=== PATIENT | female | born 1965 | race Hispanic/Latino ===

== ENCOUNTER 2018-03-17 19:15 | Emergency (ER) | payer OTHER ==
[2018-03-17 19:57] LABS: Urine Blood NEGATIVE (NEG); Urine Glucose NEGATIVE (NEG); Urine Protein NEGATIVE (NEG); Urine Specific Gravity 1.015 (1.005-1.030); Urine pH 5.5 (5.0-7.0)
[2018-03-17] MEDS ORDERED: NA CHLORIDE 0.9% 1,000 ML ONE (20:02)
--- NOTE | 2018-03-17 20:20 | RAD REPORT ---
EXAM DESCRIPTION: RAD - Chest Single View - 03/17/2018 8:06 pm CLINICAL HISTORY: Body aches, chills COMPARISON: None. TECHNIQUE: AP portable chest image was obtained 2002 hours . FINDINGS: Lungs are clear. Heart and vasculature are normal. No measurable pleural effusion and no p neumothorax. No gross bony abnormality seen. No acute aortic findings suspected. IMPRESSION: No acute cardiopulmonary process.
[2018-03-17 20:24] LABS: Protime INR 1.01
[2018-03-17 20:25] LABS: Absolute Lymphocytes (CBC) 1.1 K/uL (0.7-4.9); Absolute Monocytes 0.5 K/uL (0.1-1.3); Absolute Neutrophil 3.7 K/uL (1.8-8.0); Basophils % 0.7 % (0-1.3); Eosinophils % 0.6 % (0-4.4); Hematocrit 41.8 % (36.0-45.0); Lymphocytes % 21.3 % (15.3-44.8); MCH 30.4 pg (27.0-35.0); MCV 88.8 fL (80-100); MPV 7.7 fL (7.6-11.3); Monocytes % 9.9 % (3.3-12.3); RBC Red Blood Cell Count 4.71 M/uL (3.86-4.86)
[2018-03-17 20:28] LABS: ALT/SGPT 146 U/L (12-78); AST/SGOT 128 U/L (15-37); Alkaline Phosphatase 123 U/L (45-117); BUN Blood Urea Nitrogen 10 mg/dL (7-18); Bicarbonate 25 mmol/L (21-32); Bilirubin Direct 0.2 mg/dL (0-0.2); Bilirubin Total 0.5 mg/dL (0.2-1.0); Glucose Level 108 mg/dL (74-106); Magnesium 2.3 mg/dL (1.8-2.4); NT PRO-BNP 31 pg/mL (<125); Potassium 3.8 mmol/L (3.5-5.1); Protein, Total 8.3 g/dL (6.4-8.2); Sodium Level 137 mmol/L (136-145); Troponin (Emerg Dept Use Only) < 0.02 ng/mL (0.0-0.045)
--- NOTE | 2018-03-17 20:58 | EDPHYS ---
Physician Documentation [facility] Name: Farrah Menard Age: 52 yrs Sex: Female : 1965 Arrival Date: 03/17/2018 Time: 19:18 Bed 27 Private MD: ED Physician Blair Canales HPI: 03/17 19:36 This 52 yrs old Female presents to ER via Ambulatory with complaints of Body irma ache. 19:33 Onset: The symptoms/episode began/occurred 3 day(s) ago. Severity of symptoms: At their irma worst the symptoms were mild moderate in the emergency department the symptoms are unchanged. The patient has not experienced similar symptoms in the past. 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 - Social history:: Smoking status: Patient/guardian denies using tobacco. - Ebola Screening: : Patient denies travel to an Ebola-affected area in the 21 days before illness onset. - Family history:: not pertinent. ROS: 19:33 Constitutional: Negative for fever, chills, and weight loss, Eyes: Negative for injury, irma pain, redness, and discharge, ENT: Negative for injury, pain, and discharge, Neck: Negative for injury, pain, and swelling, Cardiovascular: Negative for chest pain, palpitations, and edema, Respiratory: Negative for shortness of breath, cough, wheezing, and pleuritic chest pain, Abdomen/GI: Negative for abdominal pain, nausea, vomiting, diarrhea, and constipation, Back: Negative for injury and pain, : Negative for injury, bleeding, discharge, and swelling, Skin: Negative for injury, rash, and discoloration, Neuro: Negative for headache, weakness, numbness, tingling, and seizure, Psych: Negative for depression, anxiety, suicide ideation, homicidal ideation, and hallucinations, Allergy/Immunology: Negative for hives, rash, and allergies, Endocrine: Negative for neck swelling, polydipsia, polyuria, polyphagia, and marked weight changes. 19:33 MS/extremity: Positive for pain, of the back, chest, abdomen, right arm, left arm, right leg and left leg. Exam: 19:33 Constitutional: This is a well developed, well nourished patient who is awake, alert, irma and in no acute distress. Head/Face: Normocephalic, atraumatic. Eyes: Pupils equal round and reactive to light, extra-ocular motions intact. Lids and lashes normal. Conjunctiva and sclera are non-icteric and not injected. Cornea within normal limits. Periorbital areas with no swelling, redness, or edema. ENT: Nares patent. No nasal discharge, no septal abnormalities noted. Tympanic membranes are normal and external auditory canals are clear. Oropharynx with no redness, swelling, or masses, exudates, or evidence of obstruction, uvula midline. Mucous membranes moist. Neck: Trachea midline, no thyromegaly or masses palpated, and no cervical lymphadenopathy. Supple, full range of motion without nuchal rigidity, or vertebral point tenderness. No Meningismus. Chest/axilla: Normal chest wall appearance and motion. Nontender with no deformity. No lesions are appreciated. Cardiovascular: Regular rate and rhythm with a normal S1 and S2. No gallops, murmurs, or rubs. Normal PMI, no JVD. No pulse deficits. Respiratory: Lungs have equal breath sounds bilaterally, clear to auscultation and percussion. No rales, rhonchi or wheezes noted. No increased work of breathing, no retractions or nasal flaring. Abdomen/GI: Soft, non-tender, with normal bowel sounds. No distension or tympany. No guarding or rebound. No evidence of tenderness throughout. Back: No spinal tenderness. No costovertebral tenderness. Full range of motion. Female : Normal external genitalia. Skin: Warm, dry with normal turgor. Normal color with no rashes, no lesions, and no evidence of cellulitis. MS/ Extremity: Pulses equal, no cyanosis. Neurovascular intact. Full, normal range of motion. Neuro: Awake and alert, GCS 15, oriented to person, place, time, and situation. Cranial nerves II-XII grossly intact. Motor strength 5/5 in all extremities. Sensory grossly intact. Cerebellar exam normal. Normal gait. Psych: Awake, alert, with orientation to person, place and time. Behavior, mood, and affect are within normal limits. 19:33 Musculoskeletal/extremity: DVT Exam: No signs of deep vein thrombosis. no pain, no swelling, no tenderness, negative Homans' sign noted on exam, no appreciated bluish discoloration, no erythema, no increased warmth. 21:29 Musculoskeletal/extremity: Extremities: grossly normal except: noted in the left irma femoral area: pain, swelling, tenderness, left inguinal region. Vital Signs: 19:22 BP 144 / 83; Pulse 96; Resp 18; Temp 98.5; Pulse Ox 97% on R/A; Weight 61.69 kg (R); aj1 Height 5 ft. 2 in. (157.48 cm) (R); Pain 4/10; 21:04 BP 125 / 68; Pulse 94; Pulse Ox 98% on R/A; rv 21:37 BP 132 / 70; Pulse 92; Resp 20; Pulse Ox 98% on R/A; rv 19:22 Body Mass Index 24.87 (61.69 kg, 157.48 cm) 1 MDM: 19:25 Patient medically screened. [facility] 19:36 Data reviewed: vital signs, nurses notes, lab test result(s), EKG, radiologic studies, [facility] plain films. 03/17 19:33 Order name: Basic Metabolic Panel [facility] 03/17 19:33 Order name: CBC with Diff; Complete Time: 20:57 [facility] 03/17 19:33 Order name: LFT's [facility] 03/17 19:33 Order name: Magnesium [facility] 03/17 19:33 Order name: NT PRO-BNP; Complete Time: 20:29 [facility] 03/17 19:33 Order name: PT-INR; Complete Time: 20:57 [facility] 03/17 19:33 Order name: Troponin (emerg Dept Use Only) [facility] 03/17 19:33 Order name: Urine Culture [facility] 03/17 19:33 Order name: Influenza Screen (a \T\ B); Complete Time: 20:27 [facility] 03/17 19:33 Order name: Basic Metabolic Panel; Complete Time: 20:29 [facility] 03/17 19:33 Order name: Liver (Hepatic) Function; Complete Time: 20:29 [facility] 03/17 19:33 Order name: Magnesium; Complete Time: 20:29 [facility] 03/17 19:33 Order name: Troponin (Emerg Dept Use Only); Complete Time: 20:29 [facility] 03/17 19:37 Order name: CK; Complete Time: 20:27 [facility] 03/17 19:33 Order name: XRAY Chest (1 view); Complete Time: 20:27 [facility] 03/17 19:33 Order name: Cardiac monitoring; Complete Time: 20:47 [facility] 03/17 19:33 Order name: EKG - Nurse/Tech; Complete Time: 20:47 [facility] 03/17 19:33 Order name: IV Saline Lock; Complete Time: 19:59 [facility] 03/17 19:33 Order name: Labs collected and sent; Complete Time: 19:59 [facility] 03/17 19:33 Order name: O2 Per Protocol; Complete Time: 20:09 [facility] 03/17 19:33 Order name: O2 Sat Monitoring; Complete Time: 20: [facility] 03/17 19:33 Order name: Urine Dipstick-Ancillary (obtain specimen); Complete Time: 20:46 [facility] 03/17 19:33 Order name: Urine Test (obtain specimen); Complete Time: 20:46 [facility] 03/17 19:40 Order name: Urine Dipstick--Ancillary (enter results); Complete Time: 20:27 [facility] 03/17 20:31 Order name: CT Stone Protocol; Complete Time: 21:16 [facility] 03/17 20:33 Order name: Hepatitis Panel irma Administered Medications: 20:00 Drug: NS 0.9% 1000 ml Route: IV; Rate: 1 bolus; Site: right antecubital; rv 21:36 Follow up: IV Status: Completed infusion rv 21:29 Drug: Rocephin - (cefTRIAXone) 1 grams Route: IVPB; Infused Over: 30 mins; Site: right rv antecubital; 21:36 Follow up: IV Status: Completed infusion rv Disposition: 03/17/18 20:57 Discharged to Home. Impression: Urinary tract infection, site not specified, Malaise and fatigue, Dermatitis, unspecified - eczema. - Condition is Stable. - Discharge Instructions: Dysuria, Eczema, Urinary Tract Infection, Adult, Weakness, Urinary Tract Infection, Adult, Mpjh-zs-Hjgi, Weakness, Kvgo-uj-Zgct, Lymphadenopathy. - Prescriptions for Motrin IB 200 mg Oral Tablet - take 2 tablet by ORAL route every 6 hours As needed as needed with food; 20 tablet. Bactroban 2 % Topical Ointment - Apply to affected area 1 application by TOPICAL route every 12 hours; 45 gram. Cipro 500 mg Oral Tablet - take 1 tablet by ORAL route every 12 hours for 7 days; 14 tablet. Bactrim DS 800- 160 mg Oral Tablet - take 1 tablet by ORAL route every 12 hours for 10 days; 20 tablet. - Medication Reconciliation Form, Thank You Letter, Antibiotic Education, Prescription Opioid Use form. - Follow up: Private Physician; When: 2 - 3 days; Reason: Recheck today's complaints, Continuance of care, Re-evaluation by your physician. - Problem is new. - Symptoms have improved. Signatures: Dispatcher [employer] EDMS Sara Mart RN RN ajBlair Early MD MD cha Vicente, Ronaldo, RN RN rv Corrections: (The following items were deleted from the chart) 21: 20:57 03/17/2018 20:57 Discharged to Home. Impression: Urinary tract infection, site irma not specified; Malaise and fatigue. Condition is Stable. Discharge Instructions: Dysuria, Urinary Tract Infection, Adult, Weakness, Urinary Tract Infection, Adult, Pemc-aw-Ecoc, Weakness, Lzje-ub-Pgtc. Prescriptions for Cipro 500 mg Oral Tablet - take 1 tablet by ORAL route every 12 hours for 7 days; 14 tablet, Motrin IB 200 mg Oral Tablet - take 2 tablet by ORAL route every 6 hours As needed as needed with food; 20 tablet. and Forms are Medication Reconciliation Form, Thank You Letter, Antibiotic Education, Prescription Opioid Use. Follow up: Private Physician; When: 2 - 3 days; Reason: Recheck today's complaints, Continuance of care, Re-evaluation by your physician. Problem is new. Symptoms have improved. [facility] 21:38 21:27 03/17/2018 20:57 Discharged to Home. Impression: Urinary tract infection, site rv not specified; Malaise and fatigue; Dermatitis, unspecified - eczema. Condition is Stable. Discharge Instructions: Dysuria, Urinary Tract Infection, Adult, Weakness, Urinary Tract Infection, Adult, Kgvn-be-Hudh, Weakness, Zcfr-aw-Uesw. Prescriptions for Motrin IB 200 mg Oral Tablet - take 2 tablet by ORAL route every 6 hours As needed as needed with food; 20 tablet, Cipro 250 mg Oral Tablet - take 1 tablet by ORAL route every 12 hours; 10 tablet. and Forms are Medication Reconciliation Form, Thank You Letter, Antibiotic Education, Prescription Opioid Use. Follow up: Private Physician; When: 2 - 3 days; Reason: Recheck today's complaints, Continuance of care, Re-evaluation by your physician. Problem is new. Symptoms have improved. irma
--- NOTE | 2018-03-17 20:58 | ER ---
Nurse's Notes [facility] Name: Farrah Menard Age: 52 yrs Sex: Female : 1965 Arrival Date: 03/17/2018 Time: 19:18 Bed 27 Private MD: Diagnosis: Urinary tract infection, site not specified;Malaise and fatigue;Dermatitis, unspecified-eczema Presentation: 03/17 19:19 Presenting complaint: Patient states: Last night she started having body aches, and aj1 chills but states that she did not have fever. Reports right flank pain. Denies N/V/D. Transition of care: patient was not received from another setting of care. Onset of symptoms was March 16, 2018. Risk Assessment: Do you want to hurt yourself or someone else? Patient reports no desire to harm self or others. Initial Sepsis Screen: Does the patient meet any 2 criteria? HR > 90 bpm. No. Patient's initial sepsis screen is negative. Does the patient have a suspected source of infection? Yes: Acute abdominal pain. Care prior to arrival: None. 19:19 Method Of Arrival: Ambulatory aj 19:19 Acuity: YANNI 3 aj1 Triage Assessment: 19:22 General: Appears in no apparent distress. comfortable, Behavior is calm, cooperative, aj1 appropriate for age. Pain: Pain currently is 4 out of 10 on a pain scale. Neuro: Level of Consciousness is awake, alert, obeys commands. Cardiovascular: Patient's skin is warm and dry. Respiratory: Airway is patent Respiratory effort is even, unlabored, Respiratory pattern is regular, symmetrical. 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 - Social history:: Smoking status: Patient/guardian denies using tobacco. - Ebola Screening: : Patient denies travel to an Ebola-affected area in the 21 days before illness onset. - Family history:: not pertinent. Screenin:12 Abuse screen: Denies threats or abuse. Denies injuries from another. Nutritional rv screening: No deficits noted. Tuberculosis screening: No symptoms or risk factors identified. Fall Risk None identified. Assessment: 21:11 General: Appears in no apparent distress. comfortable, Behavior is calm, cooperative. rv Pain: Complains of pain in generalized. Neuro: Level of Consciousness is awake, alert, obeys commands, Oriented to person, place, time, situation. Cardiovascular: Capillary refill < 3 seconds. Respiratory: Airway is patent. GI: No signs and/or symptoms were reported involving the gastrointestinal system. : No signs and/or symptoms were reported regarding the genitourinary system. EENT: No signs and/or symptoms were reported regarding the EENT system. Derm: Skin is intact. Vital Signs: 19:22 BP 144 / 83; Pulse 96; Resp 18; Temp 98.5; Pulse Ox 97% on R/A; Weight 61.69 kg (R); aj1 Height 5 ft. 2 in. (157.48 cm) (R); Pain 4/10; 21:04 BP 125 / 68; Pulse 94; Pulse Ox 98% on R/A; rv 21:37 BP 132 / 70; Pulse 92; Resp 20; Pulse Ox 98% on R/A; rv 19:22 Body Mass Index 24.87 (61.69 kg, 157.48 cm) aj1 ED Course: 19:18 Patient arrived in ED. es 19:21 Triage completed. aj1 19:22 Arm band placed on Patient placed in an exam room. aj1 19:25 Blair Canales MD is Attending Physician. irma 19:30 Urine collected: clean catch specimen, clear, hanh colored, Amount Voided: 60mL Flu jp3 and/or RSV swab sent to lab. 19:45 Initial lab(s) drawn, by ri, sent to lab. Inserted saline lock: 22 gauge in right jp3 antecubital area, using aseptic technique. Blood collected. 19:57 Urine Dipstick--Ancillary (enter results) Sent. jp3 19:57 CK Sent. jp3 19:57 Troponin (Emerg Dept Use Only) Sent. jp3 19:57 Magnesium Sent. jp3 19:58 Liver (Hepatic) Function Sent. jp3 19:58 Basic Metabolic Panel Sent. jp3 19:58 Influenza Screen (a \T\ B) Sent. jp3 19:58 LFT's Sent. jp3 19:58 Basic Metabolic Panel Sent. jp3 20:06 XRAY Chest (1 view) In Process Unspecified. EDMS 20:[address] via wheelchair. robbie 20:46 CT Stone Protocol In Process Unspecified. EDMS 21:12 Patient has correct armband on for positive identification. Placed in gown. Bed in low rv position. Call light in reach. Side rails up X 1. Adult w/ patient. playground monitor on. Pulse ox on. NIBP on. 21:38 No provider procedures requiring assistance completed. IV discontinued, bleeding rv controlled, No redness/swelling at site. Pressure dressing applied. Administered Medications: 20:00 Drug: NS 0.9% 1000 ml Route: IV; Rate: 1 bolus; Site: right antecubital; rv 21:36 Follow up: IV Status: Completed infusion rv 21:29 Drug: Rocephin - (cefTRIAXone) 1 grams Route: IVPB; Infused Over: 30 mins; Site: right rv antecubital; 21:36 Follow up: IV Status: Completed infusion rv Outcome: 20:57 Discharge ordered by . irma 21:38 Discharged to home ambulatory. rv 21:38 Condition: improved 21:38 Discharge instructions given to patient, Instructed on discharge instructions, follow up and referral plans. medication usage, Demonstrated understanding of instructions, follow-up care, medications, Prescriptions given X 4. 21:38 Patient left the ED. rv Signatures: Dispatcher [employer] Sara Dennis, RN RN aj1 Blair Canales MD MD cha Salyer, Bj Mittal Ronaldo, RN RN rv Enrique Hurd jp3
--- NOTE | 2018-03-17 21:02 | RAD REPORT ---
EXAM DESCRIPTION: CT - Stone Protocol - 03/17/2018 8:46 pm CLINICAL HISTORY: Abdominal pain, fever and chills COMPARISON: None. TECHNIQUE: Axial [address] imaging of the abdomen and pelvis was performed without IV contrast. No IV contrast was given because of allergy, abnormal renal function, patient refusal or physician re quest. Oral contrast was given. All CT scans are performed using dose optimization technique as appropriate and may include automated exposure control or mA/KV adjustment according to patient size. FINDINGS: No suspicious findings in the lung bases. The liver, spleen and pancreas show no suspicious findings on non-contrast imaging. Cholecystectomy c lips are present. No biliary tree dilatation. No obstructing or nonobstructing calculi. There is mild fullness or dilatation of each collecting sys tem. There is no obstructing or nonobstructing calculus present. No mass or focal abnormality seen. B aseline for the patient is unknown. No significant adrenal finding. Isodense renal masses and pyelon ephritis cannot be excluded in the absence of IV contrast. The urinary bladder is without significant finding. Uterus and ovaries show no significant findings. There is a 2 centimeter partially calcifie d anterior fundal fibroid. No dilated bowel loops or bowel wall thickening. No free air, free fluid or pneumatosis. There is no peritoneal or retroperitoneal inflammatory stranding. No bulky lymphadenopathy. Patient has a 2-3 cm fat only umbilical hernia. In the superior left inguinal canal there is a 16 millimeter lymph node. Several small adjacent subce ntimeter lymph nodes are present. There is congestion and edema in the adjacent fat. A 12 millimeter right internal iliac chain lymph node is present. 8-12 mm sized bilateral external iliac chain lymph nodes are seen. A 14 millimeter upper right inguinal lymph node is present. No omental thickening. No suspicious bony findings. IMPRESSION: Patient has mild dilatation of the bilateral renal collecting systems without obstructin g or nonobstructing calculi. No bladder mass or other etiology for this mild dilatation. This is pote ntially baseline for the patient. Bilateral inguinal and bilateral external iliac chain lymph nodes are present. A 16 millimeter upper left inguinal lymph node show surrounding congestion and edema which would suggest a localized groin or left leg infectious/inflammatory process. Follow-up imaging can be performed to monitor these lymp h nodes. Full assessment is limited is the absence of IV contrast.
[2018-03-17] MEDS ORDERED: CEFTRIAXONE/SWI 1gm 1 GM/10 ML SYR ONE (21:28)
[2018-03-21 03:03] LABS: HBsAG Nonreactive (Nonreactive); Hepatitis A IgM Antibody Nonreactive
== END 2018-03-17 21:38 | disposition home or self-care (01) ==
LOC: ER 19:15
DX: N39.0 Urinary tract infection, site not specified (principal); L30.9 Dermatitis, unspecified; R53.81 Other malaise; R53.83 Other fatigue
CPT/HCPCS: 36415; 71045; 74176; 76377; 80048; 80074; 80076; 81003; 82550; 83735; 83880; 84484; 85025; 85610; 87086; 87088; 87804; 96361; 96374; 99285; J0696; J7030

== ENCOUNTER 2018-11-07 18:24 | Observation (INO) | payer OTHER ==
[2018-11-07] MEDS ORDERED: NA CHLORIDE 0.9% 2,000 ML ONE (19:50)
[2018-11-07 20:17] LABS: Urine Blood 2+ (NEG); Urine Glucose TRACE (NEG); Urine Protein 2+ (NEG)
[2018-11-07 20:20] LABS: Absolute Lymphocytes (CBC) 0.2 K/uL (0.7-4.9); Absolute Monocytes 0.2 K/uL (0.1-1.3); Absolute Neutrophil 4.7 K/uL (1.8-8.0); Basophils % 0.6 % (0-1.3); Eosinophils % 1.3 % (0-4.4); Hematocrit 44.3 % (36.0-45.0); Lymphocytes % 3.4 % (15.3-44.8); Monocytes % 3.5 % (3.3-12.3); RBC Red Blood Cell Count 4.99 M/uL (3.86-4.86)
[2018-11-07] MEDS ORDERED: ONDANSETRON 4 MG/2 ML VIAL ONE (20:21)
[2018-11-07] MEDS ORDERED: ACETAMINOPHEN 500 MG TAB ONE (20:21)
[2018-11-07 20:27] LABS: Albumin 3.4 g/dL (3.4-5.0); Bilirubin Direct 1.2 mg/dL (0-0.2); Bilirubin Total 1.7 mg/dL (0.2-1.0); Magnesium 2.3 mg/dL (1.8-2.4); Potassium 3.8 mmol/L (3.5-5.1)
[2018-11-07 20:38] LABS: Urine Bacteria 20-50 /HPF (<20); Urine Culture Reflex Order REFLEXED
--- NOTE | 2018-11-07 20:53 | ER ---
Nurse's Notes [facility] Name: Farrah Menard Age: 53 yrs Sex: Female : 1965 Arrival Date: 11/07/2018 Time: 18:27 Bed 19 Private MD: Diagnosis: Urinary tract infection, site not specified;Other sepsis Presentation: 11/07 18:36 Presenting complaint: Patient states: "yesterday I started with a UTI this morning I aj1 went to Urgent Care and they gave me penicillin and then around 4:30 I started feeling cold, achy, shivering." Patient reports that she was was discharged from Urgent Care with a Rx for penicillin. Transition of care: patient was not received from another setting of care. Onset of symptoms was November 07, 2018 at 16:30. Risk Assessment: Do you want to hurt yourself or someone else? Patient reports no desire to harm self or others. Initial Sepsis Screen: Does the patient meet any 2 criteria? HR > 90 bpm. No. Patient's initial sepsis screen is negative. Does the patient have a suspected source of infection? Yes: Dysuria/Frequency/Urgency/UTI. Care prior to arrival: None. 18:36 Method Of Arrival: Ambulatory aj1 18:36 Acuity: YANNI 3 aj1 Triage Assessment: 18:38 General: Appears in no apparent distress. uncomfortable, Behavior is calm, cooperative, aj1 appropriate for age. Pain: Complains of pain in generalized body aches. Neuro: Level of Consciousness is awake, alert, obeys commands. Cardiovascular: Patient's skin is warm and dry. Respiratory: Airway is patent Respiratory effort is even, unlabored, Respiratory pattern is regular, symmetrical. GI: Reports nausea, vomiting. : Reports burning with urination. HOSTESS: 18:38 LMP N/A - Post-menopause aj1 Historical: - Allergies: 18:38 No Known Allergies; aj1 - Home Meds: 18:38 None [Active]; aj1 - PMHx: 18:38 None; aj1 - PSHx: 18:38 Tubal ligation; Tonsillectomy; aj1 - Immunization history:: Flu vaccine is up to date. - Social history:: Smoking status: Patient/guardian denies using tobacco. - Ebola Screening: : Patient denies travel to an Ebola-affected area in the 21 days before illness onset. Screenin:30 Abuse screen: Denies threats or abuse. Nutritional screening: No deficits noted. ea Tuberculosis screening: No symptoms or risk factors identified. Fall Risk None identified. Assessment: 19:20 General: Appears uncomfortable, Behavior is calm, cooperative, appropriate for age. ea Pain: Complains of pain in all over. Neuro: Level of Consciousness is awake, alert, obeys commands, Oriented to person, place, time, situation. Cardiovascular: Patient's skin is warm and dry. Respiratory: Airway is patent Respiratory effort is even, unlabored, Respiratory pattern is regular, symmetrical. GI: Abdomen is non-distended. : Reports burning with urination. Derm: Skin is pink, warm \\T\\ dry. Musculoskeletal: Circulation, motion, and sensation intact. 21:15 Reassessment: Patient and/or family updated on plan of care and expected duration. Pain ea level reassessed. Patient is alert, oriented x 3, equal unlabored respirations, skin warm/dry/pink. 21:42 Reassessment: Patient and/or family updated on plan of care and expected duration. Pain ea level reassessed. Patient is alert, oriented x 3, equal unlabored respirations, skin warm/dry/pink. Patient states feeling better. 22:00 Reassessment: Patient and/or family updated on plan of care and expected duration. Pain ea level reassessed. Patient is alert, oriented x 3, equal unlabored respirations, skin warm/dry/pink. Reassessment: Patient and/or family updated on plan of care and expected duration. Pain level reassessed. Patient is alert, oriented x 3, equal unlabored respirations, skin warm/dry/pink. Awaiting on room assignment. 23:00 Reassessment: Patient and/or family updated on plan of care and expected duration. Pain ea level reassessed. Patient is alert, oriented x 3, equal unlabored respirations, skin warm/dry/pink. 11/08 00:42 Reassessment: Patient and/or family updated on plan of care and expected duration. Pain ea level reassessed. Patient is alert, oriented x 3, equal unlabored respirations, skin warm/dry/pink. Report called to Juan C GLOVER. 01:00 Reassessment: Patient and/or family updated on plan of care and expected duration. Pain ea level reassessed. Patient is alert, oriented x 3, equal unlabored respirations, skin warm/dry/pink. Pt admitted to room 431, left ED via wheelchair per tech, pt tolerating well. No s/s of pain or discomfort noted at this time. Vital Signs: 11/07 18:38 BP 114 / 85; Pulse 127; Resp 18; Temp 101.3; Pulse Ox 97% on R/A; Weight 61.69 kg (R); aj1 Height 5 ft. 3 in. (160.02 cm) (R); Pain 8/10; 19:18 BP 106 / 70; Pulse 109; Resp 18; Pulse Ox 98% on R/A; ea 20:15 BP 117 / 65; Pulse 109; Resp 19; Pulse Ox 97% ; ea 21:24 BP 128 / 72; Pulse 103; Resp 18; Pulse Ox 97% on R/A; ea 21:29 Temp 98.3; ea 22:15 BP 106 / 63; Pulse 94; Resp 18; Pulse Ox 96% on R/A; ea 23:45 BP 111 / 63; Pulse 99; Resp 18; Temp 98.6; Pulse Ox 96% on R/A; ea 11/08 00:45 BP 110 / 64; Pulse 90; Resp 18; Temp 98.4; Pulse Ox 98% on R/A; ea 11/07 18:38 Body Mass Index 24.09 (61.69 kg, 160.02 cm) aj1 ED Course: 11/07 18:27 Patient arrived in ED. as 18:38 Triage completed. aj1 18:38 Arm band placed on Patient placed in waiting room, Patient notified of wait time. aj1 19:05 Blair Lewis PA is PHCP. cp 19:05 Bassem Anderson MD is Attending Physician. cp 19:23 Radha Mckenzie, ADALBERTO is Primary Nurse. ea 19:25 Patient has correct armband on for positive identification. Placed in gown. Bed in low ea position. Call light in reach. 19:25 Inserted saline lock: 20 gauge in right antecubital area, using aseptic technique. ea 20:[address] 2 20:52 Bassem Conklin MD is Hospitalizing Provider. cp 21:05 CT Abd/Pelvis - W/Contrast: no oral contrast In Process Unspecified. EDMS 21:22 US Abdomen Limited: RUQ/epigastric area In Process Unspecified. EDMS 23:44 No provider procedures requiring assistance completed. Patient admitted, IV remains in ea place. Administered Medications: 19:50 Drug: NS 0.9% (30 ml/kg) 30 ml/kg Route: IV; Rate: bolus; Site: right antecubital; ea 21:00 Follow up: Response: No adverse reaction; IV Status: Completed infusion; IV Intake: ea 1850ml 20:15 Drug: Acetaminophen 1000 mg Route: PO; ea 21:29 Follow up: Temp 98.3; Response: No adverse reaction ea 20:15 Drug: Zofran 4 mg Route: IVP; Site: right antecubital; ea 20:30 Follow up: Response: No adverse reaction; Marked relief of symptoms ea 21:17 Drug: Rocephin - (cefTRIAXone) 1 grams Route: IVPB; Infused Over: 30 mins; Site: right ea antecubital; 21:59 Follow up: Response: No adverse reaction; IV Status: Completed infusion ea 22:47 Drug: NS 0.9% 1000 ml Route: IV; Rate: 100 ml/hr; Site: right antecubital; ea 11/08 00:35 Follow up: Response: No adverse reaction; IV Status: Completed infusion ea Intake: 11/07 21:00 IV: 1850ml; Total: 1850ml. ea Outcome: 20:53 Decision to Hospitalize by Provider. cp 21:10 Instructed on the need for admit. ea 11/08 00:51 Discharged to home ambulatory, with family. ea Condition: stable 01:04 Patient left the ED. ea Signatures: Dispatcher [employer] EDMS Sara Mart, RN RN [facility] [place] Corey, PA PA cp McGuire, Victoria Radha Juarez RN RN ea Corrections: (The following items were deleted from the chart) 11/07 18:40 18:36 Acuity: YANNI 4 aj1 aj1 23:47 23:45 BP 111 / 63; Pulse 99bpm; Resp 18bpm; Pulse Ox 96% RA; ea ea
--- NOTE | 2018-11-07 20:53 | EDPHYS ---
Physician Documentation [facility] Name: Farrah Menard Age: 53 yrs Sex: Female : 1965 Arrival Date: 11/07/2018 Time: 18:27 Bed 19 Private MD: ED Physician Bassem Anderson HPI: 11/07 19:20 This 53 yrs old Female presents to ER via Ambulatory with complaints of cp Urinary Problem, Pain All Over, Vomiting. 19:20 The patient presents with urinary symptoms. Onset: The symptoms/episode began/occurred cp yesterday, and became worse today. Associated signs and symptoms: Pertinent positives: fever, nausea, vomiting, chills, abdominal pain, back pain, Pertinent negatives: constipation, diarrhea. Severity of symptoms: in the emergency department the symptoms are actually worse. The patient has been recently seen at an urgent care, today, for similar complaints, was given a prescription for antibiotics. 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 - Social history:: Smoking status: Patient/guardian denies using tobacco. - Ebola Screening: : Patient denies travel to an Ebola-affected area in the 21 days before illness onset. ROS: 19:30 Constitutional: Positive for body aches, chills, fever, Negative for poor PO intake. cp 19:30 Eyes: Negative for injury, pain, redness, and discharge. cp 19:30 ENT: Negative for drainage from ear(s), ear pain, sore throat, difficulty swallowing, difficulty handling secretions. 19:30 Neck: Negative for pain with movement, pain at rest, stiffness, tenderness. 19:30 Cardiovascular: Negative for chest pain, edema, palpitations. 19:30 Respiratory: Negative for cough, shortness of breath, wheezing. 19:30 Abdomen/GI: Positive for abdominal pain, nausea, vomiting, Negative for diarrhea, constipation, black/tarry stool, rectal bleeding. 19:30 Back: Positive for flank pain, bilaterally. 19:30 : Positive for urinary symptoms, Negative for vaginal bleeding, vaginal discharge. 19:30 Skin: Negative for cellulitis, rash. 19:30 Neuro: Negative for altered mental status, dizziness, headache, weakness. 19:30 All other systems are negative. Exam: 19:38 Constitutional: The patient appears in no acute distress, alert, awake, cp non-diaphoretic, non-toxic, well developed, well nourished, febrile, uncomfortable. 19:38 Head/Face: Normocephalic, atraumatic. cp 19:38 Eyes: Periorbital structures: appear normal, Pupils: equal, round, and reactive to light and accomodation, Extraocular movements: intact throughout, Conjunctiva: normal, no exudate, no injection, Sclera: no appreciated abnormality, Lids and lashes: appear normal, bilaterally. 19:38 ENT: External ear(s): are unremarkable, Ear canal(s): are normal, clear, TM's: bulging, is not appreciated, bilaterally, dullness, bilaterally, erythema, is not appreciated, bilaterally, Nose: is normal, Mouth: Lips: moist, Oral mucosa: pink and intact, moist, Posterior pharynx: is normal, airway is patent, no erythema, no exudate, Voice: is normal. 19:38 Neck: ROM/movement: is normal, is supple, without pain, no range of motions limitations, no meningismus, no nuchal rigidity, Lymph nodes: no appreciated lymphadenopathy. 19:38 Chest/axilla: Inspection: normal, Palpation: is normal, no crepitus, no tenderness. 19:38 Cardiovascular: Rate: tachycardic, Rhythm: regular, Edema: is not appreciated, JVD: is not appreciated. 19:38 Respiratory: the patient does not display signs of respiratory distress, Respirations: normal, no use of accessory muscles, no retractions, no splinting, no tachypnea, labored breathing, is not present, Breath sounds: are clear throughout, no decreased breath sounds, no stridor, no wheezing. 19:38 Abdomen/GI: Inspection: abdomen appears normal, Bowel sounds: active, all quadrants, Palpation: soft, in all quadrants, mild abdominal tenderness, in the right lower quadrant and left lower quadrant, rebound tenderness, is not appreciated, voluntary guarding, is not appreciated, involuntary guarding, is not appreciated. 19:38 Back: pain, that is mild, of the low back area and mid back area, ROM is normal. 19:38 Skin: cellulitis, is not appreciated, no rash present. 19:38 Neuro: Orientation: to person, place \T\ time. Mentation: is normal, Cerebellar function: is grossly normal, Motor: moves all fours, strength is normal, Sensation: is normal. Vital Signs: 18:38 BP 114 / 85; Pulse 127; Resp 18; Temp 101.3; Pulse Ox 97% on R/A; Weight 61.69 kg (R); aj1 Height 5 ft. 3 in. (160.02 cm) (R); Pain 8/10; 19:18 BP 106 / 70; Pulse 109; Resp 18; Pulse Ox 98% on R/A; ea 20:15 BP 117 / 65; Pulse 109; Resp 19; Pulse Ox 97% ; ea 21:24 BP 128 / 72; Pulse 103; Resp 18; Pulse Ox 97% on R/A; ea 21:29 Temp 98.3; ea 22:15 BP 106 / 63; Pulse 94; Resp 18; Pulse Ox 96% on R/A; ea 23:45 BP 111 / 63; Pulse 99; Resp 18; Temp 98.6; Pulse Ox 96% on R/A; ea 11/08 00:45 BP 110 / 64; Pulse 90; Resp 18; Temp 98.4; Pulse Ox 98% on R/A; ea 11/07 18:38 Body Mass Index 24.09 (61.69 kg, 160.02 cm) aj1 MDM: 11/07 19:05 Patient medically screened. cp 19:35 Differential diagnosis: pelvic inflammatory disease, urinary tract infection, sepsis, cp pyelonephritis, appendicitis. 20:55 Data reviewed: vital signs, nurses notes, lab test result(s), I have discussed the cp patient's presentation/case with the attending Emergency Department Physician; and as a result, I will admit patient. 20:55 Response to treatment: the patient's symptoms have markedly improved after treatment. Physician consultation: Bassem Conklin MD was called at 20:45, was contacted at 20:45, regarding admission, to the telemetry unit. patient's condition. 11/07 19:16 Order name: Basic Metabolic Panel 11/07 19:16 Order name: CBC with Diff 11/07 19:16 Order name: Creatinine for Radiology 11/07 19:16 Order name: Hepatic Function 11/07 19:16 Order name: Lipase 11/07 19:16 Order name: Procalcitonin; Complete Time: 20:36 11/07 20:36 Interpretation: Abnormal: Procalcitonin 2.71. cp 11/07 19:16 Order name: Lactate; Complete Time: 20:35 11/07 19:16 Order name: Blood Culture Adult (2) 11/07 19:16 Order name: Magnesium; Complete Time: 20:35 11/07 19:16 Order name: Urine Microscopic Only; Complete Time: 20:44 11/07 19:16 Order name: Influenza Screen (a \T\ B); Complete Time: 20:35 11/07 19:17 Order name: Basic Metabolic Panel; Complete Time: 20:35 EDOH 11/07 20:36 Interpretation: Normal except: CL 109; GLUC 161; GFR 58. 11/07 19:17 Order name: CBC with Automated Diff; Complete Time: 22:34 EDOH 11/07 20:36 Interpretation: Normal except: RBC 4.99; MAGDY% 91.2; LYM% 3.4; LYMA 0.2. 11/07 19:17 Order name: Creatinine (Radiology Only); Complete Time: 20:35 EDMS 11/07 19:17 Order name: Liver (Hepatic) Function; Complete Time: 20:35 EDOH 11/07 19:17 Order name: Lipase; Complete Time: 20:35 [facility] 11/07 20:07 Order name: Urine Dipstick--Ancillary (enter results) [facility] 11/07 20:07 Order name: Urine --Ancillary (enter results) [facility] 11/07 20:40 Order name: CT Abd/Pelvis - W/Contrast: no oral contrast 11/07 20:40 Order name: Urine Culture [facility] 11/07 20:45 Order name: US Abdomen Limited: RUQ/epigastric area; Complete Time: 08:38 11/07 21:11 Order name: CBC Smear Scan; Complete Time: 22:34 EDMS 11/08 00:17 Order name: CBC with Automated Diff; Complete Time: 08:38 EDOH 11/08 00:17 Order name: Comprehensive Metabolic Panel; Complete Time: 08:38 [facility] 11/08 00:17 Order name: Lipid Profile; Complete Time: 08:38 [facility] 11/08 00:17 Order name: Protime (+INR); Complete Time: 08:38 [facility] 11/08 00:17 Order name: PTT, Activated Partial Thromb; Complete Time: 08:38 [facility] 11/08 00:17 Order name: Troponin I; Complete Time: 08:38 [facility] 11/08 00:17 Order name: Troponin I; Complete Time: 08:38 [facility] 11/08 00:17 Order name: Hepatitis Panel,Acute EDOH 11/07 19:16 Order name: IV Saline Lock; Complete Time: 22:13 cp 11/07 19:16 Order name: Labs collected and sent; Complete Time: 22:13 cp 11/07 19:16 Order name: Urine Dipstick-Ancillary (obtain specimen); Complete Time: 22:18 cp 11/07 19:16 Order name: Urine Test (obtain specimen); Complete Time: 22:18 cp 11/07 19:16 Order name: EKG; Complete Time: 19:18 cp 11/07 19:16 Order name: EKG - Nurse/Tech; Complete Time: 22:13 cp 11/07 23:55 Order name: CONS Pharmacy Consult EDOH 11/07 23:55 Order name: NPO [facility] Administered Medications: 19:50 Drug: NS 0.9% (30 ml/kg) 30 ml/kg Route: IV; Rate: bolus; Site: right antecubital; ea 21:00 Follow up: Response: No adverse reaction; IV Status: Completed infusion; IV Intake: ea 1850ml 20:15 Drug: Acetaminophen 1000 mg Route: PO; ea 21:29 Follow up: Temp 98.3; Response: No adverse reaction ea 20:15 Drug: Zofran 4 mg Route: IVP; Site: right antecubital; ea 20:30 Follow up: Response: No adverse reaction; Marked relief of symptoms ea 21:17 Drug: Rocephin - (cefTRIAXone) 1 grams Route: IVPB; Infused Over: 30 mins; Site: right ea antecubital; 21:59 Follow up: Response: No adverse reaction; IV Status: Completed infusion ea 22:47 Drug: NS 0.9% 1000 ml Route: IV; Rate: 100 ml/hr; Site: right antecubital; ea 11/08 00:35 Follow up: Response: No adverse reaction; IV Status: Completed infusion ea Disposition: 11/07/18 20:53 Hospitalization ordered by Bassem Conklin for Inpatient Admission. Preliminary diagnosis are Urinary tract infection, site not specified, Other sepsis. - Bed requested for Telemetry/MedSurg (Inpatient). - Status is Inpatient Admission. ea - Condition is Stable. - Problem is new. - Symptoms have improved. UTI on Admission? Yes Addendum: 11/14/2018 19:53 Co-signature as Attending Physician, Bassem Anderson MD. m a2 Signatures: Dispatcher [employer] EDSara Boyd RN RN aj1 Blair Lewis PA PA cp Garcia, Cindy, RN RN cg Antunez, Elena, RN RN ea Alzahri, Mohammad, MD MD ma2 Corrections: (The following items were deleted from the chart) 11/07 20:36 20:36 Normal except: RBC 4.99; MAGDY% 91.2; LYM% 3.4. cp 11/08 00:25 11/07 20:53 Hospitalization Ordered by Bassem Conklin MD for Inpatient Admission. cg Preliminary diagnosis is Urinary tract infection, site not specified; Other sepsis. Bed requested for Telemetry/MedSurg (Inpatient). Status is Inpatient Admission. Condition is Stable. Problem is new. Symptoms have improved. UTI on Admission? Yes. 11/08 01:04 00:25 11/07/2018 20:53 Hospitalization Ordered by Bassem Conklin MD for Inpatient ea Admission. Preliminary diagnosis is Urinary tract infection, site not specified; Other sepsis. Bed requested for Telemetry/MedSurg (Inpatient). Status is Inpatient Admission. Condition is Stable. Problem is new. Symptoms have improved. UTI on Admission? Yes. cg
[2018-11-07 21:11] LABS: Blood Morphology Comment NOT SEEN (NOT SEEN); Platelet Estimate ADEQ; Urine White Blood Cell Casts OK
[2018-11-07] MEDS ORDERED: CEFTRIAXONE/SWI 1gm 1 GM/10 ML SYR ONE (21:34)
[2018-11-07] MEDS ORDERED: NA CHLORIDE 0.9% 1,000 ML ONE (22:58)
[2018-11-07] MEDS ORDERED: ONDANSETRON 4 MG/2 ML VIAL IV PRN (23:51)
[2018-11-07] MEDS ORDERED: MORPHINE 4 MG/ML SYR IV PRN (23:51)
[2018-11-08 06:20] LABS: Absolute Lymphocytes (CBC) 0.3 K/uL (0.7-4.9); Absolute Monocytes 0.1 K/uL (0.1-1.3); Absolute Neutrophil 2.5 K/uL (1.8-8.0); Basophils % 0.5 % (0-1.3); Eosinophils % 4.3 % (0-4.4); Lymphocytes % 10.1 % (15.3-44.8); MPV 8.4 fL (7.6-11.3); Monocytes % 2.1 % (3.3-12.3); RBC Red Blood Cell Count 4.51 M/uL (3.86-4.86)
[2018-11-08 06:24] LABS: Protime INR 0.97
[2018-11-08 06:33] LABS: Albumin 2.6 g/dL (3.4-5.0); Bilirubin Total 0.8 mg/dL (0.2-1.0); Potassium 3.5 mmol/L (3.5-5.1); Protein, Total 5.7 g/dL (6.4-8.2)
[2018-11-08] MEDS: NA CHLORIDE 0.9% 1,000 ML IV SCH ×4 (08:06→23:48)
--- NOTE | 2018-11-08 08:19 | RAD REPORT ---
EXAM DESCRIPTION: US - Abdomen Exam Limited - 11/07/2018 9:22 pm CLINICAL HISTORY: ABD PAIN COMPARISON: Abdomen Exam Complete dated 11/05/2015 FINDINGS: Cholecystectomy. The common bile duct is normal measuring 4 mm. The liver demonstrates no findings of intrahepatic biliary dilatation. Mild fatty liver. IMPRESSION: Mild fatty liver.
--- NOTE | 2018-11-08 10:46 | RAD REPORT ---
EXAM DESCRIPTION: Abdomen Pelvis W Contrast EXAM DESCRIPTION: Abdomen Pelvis W Contrast CLINICAL HISTORY: 53 years Female, ABD PAIN COMPARISON: Noncontrast CT scan the abdomen and pelvis dated 03/17/2018. TECHNIQUE: 5 mm axial images of the abdomen and pelvis were obtained with intravenous contrast. 3 mm coronal and sagittal reforma tted images were obtained.. This exam was performed according to our departmental dose-optimization program, which includes autom ated exposure control, adjustment of the mA and/or kV according to patient size and/or use of iterati ve reconstruction technique. INTRAVENOUS CONTRAST: Not documented. Please refer to medical record FINDINGS: Lung bases: There is mild dependent bibasilar atelectasis.. Liver: There is diffuse fatty liver infiltration.. Spleen: Normal. Pancreas: Normal. Gallbladder: Surgically absent. Right adrenal gland: Normal. Left adrenal gland: Normal. Right kidney: Normal. Left kidney: Normal. Retroperitoneal structures: Normal. Bowel survey: There are multiple small bowel loops in the left abdominal flank with mural thickening and nondistended distal small bowel loops in the right lower quadrant with short air-fluid levels. Fi ndings suggestive of enteritis. There is mild sigmoid diverticulosis.. Urinary bladder: Normal. Uterus and adnexa: There is a small partially calcified exophytic uterine fibroid extending anteriorl y from the uterine body just left of midline. This measures 1.7 x 1.9 cm.. Peritoneal cavity: Normal. Mesentery structures: Normal. Abdominal wall: No hernia. There has been interval resolution of enlarged left inguinal lymph node. Bony structures: No suspicious lesions. IMPRESSION: 1. Findings suspicious for enteritis. 2. Small partially calcified uterine fibroid. 3. Diffuse fatty liver infiltration. Electronically signed by: Nathanael Centeno MD 11/07/2018 9:17 PM CDT Due to temporary technical issues with the PACS/Fluency reporting system, reports are being signed by the in house radiologist as a courtesy to ensure prompt reporting. The interpreting radiologist is f ully responsible for the content of the report.
--- NOTE | 2018-11-08 10:56 | P.HP ---
Certification for Inpatient Patient admitted to: Observation With expected LOS: <2 Midnights Practitioner: I am a practitioner with admitting privileges, knowledge of patient current condition, hospital course, and medical plan of care. Services: Services provided to patient in accordance with Admission requirements found in Title 42 Section 412.3 of the Code of Federal Regulations Patient History Date of Service: 11/08/18 Reason for admission: Pain all over; UTI with bacteremia History of Present Illness: Patient is a 53-year-old female who came to the hospital with complaints of hurting all over. She said she just had generalized body aches. She also felt like all her joints were hurting. She came into the emergency room for further evaluation. In the ER she spiked a temp of a 101. She did not have a leukocytosis nor any other lab abnormalities except for a slightly elevated heart rate. It was felt she may have sepsis so she was admitted to the hospital for further evaluation. She had a CT scan which did not reveal any abnormal findings. She also had additional lab testing performed which revealed urinary tract infection. She states she was given Tylenol and after were she felt much better. She is clinically doing well this morning. She has no complaints. Her liver numbers were elevated but she has been told she has a fatty liver. All check her hepatitis panel and repeat her liver function testing. If these are improved and she clinically appears to be doing well we will let her go home with oral antibiotics for urinary tract infection. Will continue to monitor her throughout the morning, and after lunch she should be able to go home if her labs and her clinical condition remained stable. Allergies sulfamethoxazole [From Bactrim] Allergy (Severe, Verified 11/08/18 01:13) leg cramps trimethoprim [From Bactrim] Allergy (Severe, Verified 11/08/18 01:13) leg cramps Home Medications: NK [No Home Meds] 11/08/18 - Past Medical/Surgical History Has patient received pneumonia vaccine in the past: No Diabetic: No Past Medical History: Patient denies medical history -: Tubal Ligation -: Tonsilectomy - Family History Father Family History: Reviewed- Non-Contributory - Social History Smoking Status: Never smoker Alcohol use: Yes CD- Drugs: No Caffeine use: Yes Place of Residence: Home Review of Systems 10-point ROS is otherwise unremarkable Physical Examination - Vital Signs Temperature: 98.5 F Blood Pressure: 96/51 Pulse: 99 Respirations: 20 Pulse Ox (%): 96 - Physical Exam General: Alert, In no apparent distress, Oriented x3 HEENT: Atraumatic, PERRLA, Mucous membr. moist/pink, EOMI, Sclerae nonicteric Neck: Supple, 2+ carotid pulse no bruit, No LAD, Without JVD or thyroid abnormality Respiratory: Clear to auscultation bilaterally, Normal air movement Cardiovascular: Regular rate/rhythm, Normal S1 S2 Gastrointestinal: Normal bowel sounds, Soft and benign, Non-distended, No tenderness Musculoskeletal: No clubbing, No swelling, No tenderness Integumentary: No rashes Neurological: Normal gait, Normal speech, Normal strength at 5/5 x4 extr, Normal tone, Sensation intact, Cranial nerves 3-12 intact, Normal affect Lymphatics: No axilla or inguinal lymphadenopathy - Studies Laboratory Data (last 24 hrs) 11/07/18 19:50: Creatinine 1.00 11/07/18 19:50: WBC 5.2, Hgb 14.9, Hct 44.3, Plt Count 235 11/07/18 19:50: Sodium 141, Potassium 3.8, BUN 13, Creatinine 1.00, Glucose 161 H, Magnesium 2.3, Total Bilirubin 1.7 H, AST 131 H, ALT 275 H, Alkaline Phosphatase 162 H, Lipase 59 L Microbiology Data (last 24 hrs): 11/07/18 19:50 Nasopharnyx Influenza Type A Antigen Screen - Final 11/07/18 19:50 Nasopharnyx Influenza Type B Antigen Screen - Final Assessment & Plan - Problems (Diagnosis) (1) Fever Current Visit: Yes Status: Acute (2) UTI (urinary tract infection) Current Visit: Yes Status: Acute (3) Elevated liver enzymes Current Visit: Yes Status: Acute (4) Myalgia Current Visit: Yes Status: Acute (5) Tachycardia Current Visit: Yes Status: Acute - Plan Plan: 1. IV fluids and IV antibiotics 2. Urinanalysis and cx and sens 3. Antipyretics 4. GI and DVT prophylaxis Discharge Plan: Home Plan to discharge in: 24 Hours - Advance Directives Does patient have a Living Will: No Does patient have a Durable POA for Healthcare: No - Code Status/Comfort Care Code Status Assessed: Yes Code Status: Full Code Critical Care: No Time Spent Managing PTS Care (In Minutes): 45
[2018-11-08] MEDS ORDERED: Levofloxacin500mg IV 500 MG/100 ML BAG IV SCH (11:00)
[2018-11-08] MEDS ORDERED: ACETAMINOPHEN 325 MG TABLET PO ONE ×2 (12:58→20:16)
[2018-11-09 00:43] VITALS: BMI 25.1
[2018-11-09 04:30] VITALS: BP 99/53; TEMP 99.4
--- NOTE | 2018-11-09 05:56 | P.PN ---
Date of Service: 11/08/18 Plan was to discharge patient home today. However, decision was made to keep patient in the hospital because she continued to spike temperatures. Her fever was followed by generalized body aches. Her UA is positive in urine cultures are pending. Blood cultures are pending as well. My concern is that she may be bacteremic. Awaiting culture results as patient continues to have temperatures with systemic fax including body ache/myalgias with weakness. Hopefully, she does improve and we can discharge her home in the morning.
[2018-11-09 06:09] LABS: Absolute Lymphocytes (CBC) 0.5 K/uL (0.7-4.9); Absolute Monocytes 0.2 K/uL (0.1-1.3); Basophils % 0.4 % (0-1.3); Eosinophils % 8.8 % (0-4.4); Hematocrit 36.5 % (36.0-45.0); Lymphocytes % 11.3 % (15.3-44.8); Monocytes % 4.4 % (3.3-12.3); RBC Red Blood Cell Count 4.16 M/uL (3.86-4.86)
[2018-11-09 06:24] LABS: Albumin 2.3 g/dL (3.4-5.0); Bilirubin Total 0.5 mg/dL (0.2-1.0); Potassium 3.8 mmol/L (3.5-5.1)
[2018-11-09] MEDS: NA CHLORIDE 0.9% 1,000 ML IV SCH (07:17)
[2018-11-09 09:17] VITALS: O2SAT 95
--- NOTE | 2018-11-09 23:52 | P.DS ---
Discharge Date: 11/09/18 Disposition: ROUTINE DISCHARGE Discharge Condition: GOOD Reason for Admission: Pain all over; UTI with bacteremia - Problems (1) Fever Status: Acute (2) UTI (urinary tract infection) Status: Acute (3) Elevated liver enzymes Status: Acute (4) Myalgia Status: Acute (5) Tachycardia Status: Acute Brief History of Present Illness: Patient is a 53-year-old female who came to the hospital with complaints of hurting all over. She said she just had generalized body aches. She also felt like all her joints were hurting. She came into the emergency room for further evaluation. In the ER she spiked a temp of a 101. She did not have a leukocytosis nor any other lab abnormalities except for a slightly elevated heart rate. It was felt she may have sepsis so she was admitted to the hospital for further evaluation. She had a CT scan which did not reveal any abnormal findings. She also had additional lab testing performed which revealed urinary tract infection. She states she was given Tylenol and after were she felt much better. She is clinically doing well this morning. She has no complaints. Her liver numbers were elevated but she has been told she has a fatty liver. All check her hepatitis panel and repeat her liver function testing. If these are improved and she clinically appears to be doing well we will let her go home with oral antibiotics for urinary tract infection. Will continue to monitor her throughout the morning, and after lunch she should be able to go home if her labs and her clinical condition remained stable. Hospital Course: Patient has done well during hospital stay. Afebrile, and her labs have improved. Discharge on medrol dose pack and antibiotics for UTI. Return to the ER if symptoms worsens. Vital Signs/Physical Exam: Temp Pulse Resp BP Pulse Ox 99.4 F 100 H 18 99/53 L 95 11/09/18 08:00 11/09/18 08:00 11/09/18 08:00 11/09/18 08:00 11/09/18 08:00 General: Alert, In no apparent distress, Oriented x3 Laboratory Data at Discharge: WBC 4.0 K/uL (4.3-10.9) L D 11/09/18 05:47 Hgb 12.5 g/dL (12.0-15.0) 11/09/18 05:47 Hct 36.5 % (36.0-45.0) 11/09/18 05:47 Plt Count 190 K/uL (152-406) 11/09/18 05:47 PT 11.5 SECONDS (9.5-12.5) 11/08/18 05:53 INR 0.97 11/08/18 05:53 APTT 27.0 SECONDS (24.3-36.9) 11/08/18 05:53 Sodium 143 mmol/L (136-145) 11/09/18 05:47 Potassium 3.8 mmol/L (3.5-5.1) 11/09/18 05:47 BUN 7 mg/dL (7-18) 11/09/18 05:47 Creatinine 0.73 mg/dL (0.55-1.3) 11/09/18 05:47 Glucose 111 mg/dL (74-106) H 11/09/18 05:47 Magnesium 2.3 mg/dL (1.8-2.4) 11/07/18 19:50 Total Bilirubin 0.5 mg/dL (0.2-1.0) 11/09/18 05:47 AST 28 U/L (15-37) 11/09/18 05:47 ALT 105 U/L (12-78) H 11/09/18 05:47 Alkaline Phosphatase 117 U/L (45-117) 11/09/18 05:47 Troponin I < 0.02 ng/mL (0.0-0.045) 11/08/18 05:53 Triglycerides 141 mg/dL (<150) 11/08/18 05:53 Cholesterol 227 mg/dL (<200) H 11/08/18 05:53 HDL Cholesterol 51 mg/dL (40-60) 11/08/18 05:53 Cholesterol/HDL Ratio 4.45 11/08/18 05:53 Lipase 59 U/L (73-393) L 11/07/18 19:50 Home Medications: levoFLOXacin [Levaquin] 500 mg PO DAILY #7 tab 11/09/18 predniSONE [Deltasone] 20 mg PO BID #10 tab 11/09/18 New Medications: levoFLOXacin [Levaquin] 500 mg PO DAILY #7 tab predniSONE [Deltasone] 20 mg PO BID #10 tab Patient Discharge Instructions: OK TO DC IV AND DC HOME. FOLLOW-UP WITH PRIMARY CARE PROVIDER IN 1-2 WEEKS. RETURN TO THE ER IF SYMPTOMS WORSE. CALL DR. YARBROUGH AT [phone] IF ANY QUESTIONS REGARDING HOSPITAL STAY. PLEASE CALL THE FLOOR AT [phone] IF ANY MEDICATION OR NURSING QUESTIONS. Diet: Regular Activity: Fall precautions Followup: Faby Nam, BLACK [employer]XIDE OPERATOR [ALLIED HEALTH PROFESSIONAL] - 2-3 Days (call to schedule an appointment ) Time spent managing pt's care (in minutes): 30
[2018-11-11 02:51] LABS: HBsAG Nonreactive (Nonreactive); Hepatitis A IgM Antibody Nonreactive
== END 2018-11-09 10:19 | disposition home or self-care (01) ==
LOC: ER 18:24 → ERHOLD 11-08 00:18 → 4TH 11-08 00:38
PROVIDERS: ADMIT Hospitalist; ATTEND Hospitalist
DX: N39.0 Urinary tract infection, site not specified (principal); R74.8 Abnormal levels of other serum enzymes; M79.10 Myalgia, unspecified site; R00.0 Tachycardia, unspecified; K76.0 Fatty (change of) liver, not elsewhere classified; D25.9 Leiomyoma of uterus, unspecified
CPT/HCPCS: 36415; 74177; 76705; 80048; 80053; 80061; 80074; 80076; 81003; 81015; 81025; 83605; 83690; 83735; 84145; 84484; 85025; 85610; 85730; 87040; 87086; 87088; 87804; 96361; 96365; 96367; 96375; 99284; G0378; J0696; J2405; J7030; Q9967

== ENCOUNTER 2019-04-11 11:36 | Emergency (ER) | payer OTHER ==
[2019-04-11 13:35] LABS: Urine Blood TRACE (NEG); Urine Glucose NEGATIVE (NEG); Urine Protein NEGATIVE (NEG); Urine Specific Gravity <1.005 (1.005-1.030)
[2019-04-11 14:03] LABS: Urine Bacteria NONE SEEN /HPF (<20); Urine Culture Reflex Order NOT NEEDED; Urine RBC <5 /HPF (NONE SEEN)
--- NOTE | 2019-04-11 14:23 | RAD REPORT ---
EXAM DESCRIPTION: CT - Stone Protocol - 04/11/2019 1:29 pm CLINICAL HISTORY: Abdominal pain, back pain COMPARISON: CT October 2018 TECHNIQUE: Axial 5 mm thick images were obtained without oral or IV contrast. The [id number] span s the entirety of the system partially obscuring uppermost abdomen and lung bases. All CT scans are performed using dose optimization technique as appropriate and may include automated exposure control or mA/KV adjustment according to patient size. FINDINGS: No hydronephrosis is present and no obstructing ureteral calculi. No suspicious renal mass es. Isodense masses and pyelonephritis are not excluded on a stone protocol CT scan. No urinary bladd er suspicious finding. No significant adrenal finding. Uterus and ovaries show no suspicious findings . Small calcified fibroid noted in the fundus. Imaged portions of the liver, spleen and pancreas show no suspicious findings on non-contrast imaging . Cholecystectomy clips are present. No biliary tree dilatation. No suspicious bowel findings. No appendicitis or other acute bowel process seen. Diverticulosis is ve ry minimal. No hernia, mass or bulky lymphadenopathy noted. No free air, free fluid or inflammatory stranding. No significant bony abnormality. IMPRESSION: Negative noncontrast CT abdomen and pelvis examination for acute finding. No significant change from the October 2018 study. Isodense masses and pyelonephritis are not excluded on stone protocol technique.
--- NOTE | 2019-04-11 14:52 | EDPHYS ---
Physician Documentation [facility] Name: Farrah Menard Age: 53 yrs Sex: Female : 1965 Arrival Date: 04/11/2019 Time: 11:40 Bed 14 Private MD: ED Physician Gerry Ye HPI: 04/11 13:46 This 53 yrs old Female presents to ER via Ambulatory with complaints of Back pm1 Pain. 13:46 The patient presents with pain that is acute, with no known mechanism of injury. The pm1 symptoms are located in the left low back and right low back. Onset: The symptoms/episode began/occurred today. The pain does not radiate. Associated signs and symptoms: Pertinent positives: dysuria, Pertinent negatives: constipation, fever, hematuria, numbness, tingling, weakness. The problem was sustained from unknown cause. Severity of symptoms: in the emergency department the symptoms have improved. Patient has been working out for the past two weeks but does not recall any injury. Patient feels that it might possibly be a UTI because she has been taking some Azo. Yesterday she had some mild suprapubic cramping with urination. Historical: - Allergies: 11:48 No Known Allergies; la1 - PMHx: 11:48 None; la1 - Immunization history:: Adult Immunizations up to date. - Social history:: Smoking status: Patient/guardian denies using tobacco. - Ebola Screening: : No symptoms or risks identified at this time. ROS: 13:46 Constitutional: Negative for fever, chills, and weight loss, Eyes: Negative for injury, pm1 pain, redness, and discharge, ENT: Negative for injury, pain, and discharge, Neck: Negative for injury, pain, and swelling, Cardiovascular: Negative for chest pain, palpitations, and edema, Respiratory: Negative for shortness of breath, cough, wheezing, and pleuritic chest pain, Abdomen/GI: Negative for abdominal pain, nausea, vomiting, diarrhea, and constipation. 13:46 MS/Extremity: Negative for injury and deformity, Skin: Negative for injury, rash, and discoloration. 13:46 Neuro: Negative for headache, weakness, numbness, tingling, and seizure. 13:46 Back: Positive for pain with movement, of the left low back and right low back. 13:46 : Positive for urinary symptoms, Negative for urinary frequency, small amounts. Exam: 13:46 Constitutional: This is a well developed, well nourished patient who is awake, alert, pm1 and in no acute distress. Head/Face: Normocephalic, atraumatic. Neck: Trachea midline, no thyromegaly or masses palpated, and no cervical lymphadenopathy. Supple, full range of motion without nuchal rigidity, or vertebral point tenderness. No Meningismus. Chest/axilla: Normal chest wall appearance and motion. Nontender with no deformity. No lesions are appreciated. Cardiovascular: Regular rate and rhythm with a normal S1 and S2. No gallops, murmurs, or rubs. Normal PMI, no JVD. No pulse deficits. Respiratory: Lungs have equal breath sounds bilaterally, clear to auscultation and percussion. No rales, rhonchi or wheezes noted. No increased work of breathing, no retractions or nasal flaring. Abdomen/GI: Soft, non-tender, with normal bowel sounds. No distension or tympany. No guarding or rebound. No evidence of tenderness throughout. 13:46 Skin: Warm, dry with normal turgor. Normal color with no rashes, no lesions, and no evidence of cellulitis. 13:46 MS/ Extremity: Pulses equal, no cyanosis. Neurovascular intact. Full, normal range of motion. 13:46 Back: normal spinal alignment noted, vertebral tenderness, is not appreciated, muscle spasm, is appreciated in the left mid back and right low back. 13:46 Neuro: Orientation: is normal, Motor: is normal, moves all fours, Sensation: is normal, no obvious gross deficits. Vital Signs: 11:48 BP 108 / 82; Pulse 120; Resp 16; Temp 97.1; Pulse Ox 100% on R/A; la1 13:00 BP 117 / 78; Pulse 98; Resp 18; Pulse Ox 99% on R/A; ph 14:30 BP 107 / 85; Pulse 87; Resp 18; Temp 98.0; Pulse Ox 99% on R/A; ph MDM: 12:20 Patient medically screened. pm1 13:37 Data reviewed: vital signs. Data interpreted: Pulse oximetry: on room air is 100 %. pm1 Interpretation: normal. 14:50 Counseling: I had a detailed discussion with the patient and/or guardian regarding: the pm1 historical points, exam findings, and any diagnostic results supporting the discharge/admit diagnosis, lab results, radiology results, the need for outpatient follow up, to return to the emergency department if symptoms worsen or persist or if there are any questions or concerns that arise at home. 04/11 12:32 Order name: Urine Microscopic Only; Complete Time: 14:11 pm1 04/11 13:28 Order name: Urine Dipstick--Ancillary (enter results); Complete Time: 13:37 ss 04/11 12:32 Order name: CT Stone Protocol; Complete Time: 14:50 pm1 04/11 12:32 Order name: Urine Dipstick-Ancillary (obtain specimen); Complete Time: 13:13 pm1 Administered Medications: 15:15 Drug: Rocephin (cefTRIAXone) 1 grams Route: IM; Site: right ventrogluteal; ph 15:46 Drug: Tylenol #3 (300 mg-30 mg) 1 tablet Route: PO; ph 15:47 Drug: Zofran 4 mg Route: PO; ph Disposition: 16:30 Co-signature as Attending Physician, Gerry Ye MD. rn Disposition: 04/11/19 14:51 Discharged to Home. Impression: Low back pain, Urinary tract infection, site not specified. - Condition is Stable. - Discharge Instructions: Back Pain, Adult, Urinary Tract Infection, Adult. - Prescriptions for Macrobid 100 mg Oral Capsule - take 1 capsule by ORAL route every 12 hours for 7 days; 14 capsule. Zofran 4 mg Oral Tablet - take 1 tablet by ORAL route every 8 hours As needed; 20 tablet. Tylenol- Codeine #3 300-30 mg Oral Tablet - take 2 tablets by ORAL route every 6 hours As needed; 20 tablet. - Family Work Release, Medication Reconciliation Form, Thank You Letter, Antibiotic Education, Prescription Opioid Use form. - Follow up: Emergency Department; When: As needed; Reason: Worsening of condition. Follow up: Private Physician; When: 2 - 3 days; Reason: Recheck today's complaints, Continuance of care, Re-evaluation by your physician. - Problem is new. - Symptoms have improved. Signatures: Dispatcher [employer] EDMS Gerry Ye MD MD rn Attema, Lee, RN RN la1 Mone Sawyer RN RN Bryan Shaver, CONTRACTOR FIELD HAULING CONTRACTOR FIELD HAULING pm1 Corrections: (The following items were deleted from the chart) 15:50 14:51 04/11/2019 14:51 Discharged to Home. Impression: Low back pain; Urinary tract ph infection, site not specified. Condition is Stable. Forms are Medication Reconciliation Form, Thank You Letter, Antibiotic Education, Prescription Opioid Use. Follow up: Emergency Department; When: As needed; Reason: Worsening of condition. Follow up: Private Physician; When: 2 - 3 days; Reason: Recheck today's complaints, Continuance of care, Re-evaluation by your physician. Problem is new. Symptoms have improved. pm1
--- NOTE | 2019-04-11 14:52 | ER ---
Nurse's Notes [facility] Name: Farrah Menard Age: 53 yrs Sex: Female : 1965 Arrival Date: 04/11/2019 Time: 11:40 Bed 14 Private MD: Diagnosis: Low back pain;Urinary tract infection, site not specified Presentation: 04/11 11:47 Presenting complaint: Patient states: I started working out recently and today my lower la1 back started hurting real bad on the way home from the gym. Transition of care: patient was not received from another setting of care. Onset of symptoms was April 11, 2019. Risk Assessment: Do you want to hurt yourself or someone else? Patient reports no desire to harm self or others. Initial Sepsis Screen: Does the patient meet any 2 criteria? No. Patient's initial sepsis screen is negative. Does the patient have a suspected source of infection? No. Patient's initial sepsis screen is negative. Care prior to arrival: None. 11:47 Method Of Arrival: Ambulatory la1 11:47 Acuity: YANNI 3 la1 Historical: - Allergies: 11:48 No Known Allergies; la1 - PMHx: 11:48 None; la1 - Immunization history:: Adult Immunizations up to date. - Social history:: Smoking status: Patient/guardian denies using tobacco. - Ebola Screening: : No symptoms or risks identified at this time. Screenin:22 Abuse screen: Denies threats or abuse. Denies injuries from another. Nutritional ph screening: No deficits noted. Tuberculosis screening: No symptoms or risk factors identified. Fall Risk None identified. Assessment: 12:30 General: Appears in no apparent distress. comfortable, well groomed, Behavior is calm, ph cooperative, appropriate for age. Pain: Complains of pain in right low back and left low back Pain radiates to right lower quadrant and left lower quadrant. Neuro: Level of Consciousness is awake, alert, obeys commands, Oriented to person, place, time, situation. Cardiovascular: Capillary refill < 3 seconds in bilateral fingers Patient's skin is warm and dry. Respiratory: Airway is patent Respiratory effort is even, unlabored, Respiratory pattern is regular, symmetrical. GI: Reports lower abdominal pain, Patient currently denies diarrhea, nausea, vomiting. : Reports pain in bilateral lower quadrant(s) in lower back urinary frequency. Derm: Skin is intact, is healthy with good turgor, Skin is pink, warm \T\ dry. Musculoskeletal: Circulation, motion, and sensation intact. Range of motion: intact in all extremities. 14:00 Reassessment: Patient appears in no apparent distress at this time. Patient and/or ph family updated on plan of care and expected duration. Pain level reassessed. Patient is alert, oriented x 3, equal unlabored respirations, skin warm/dry/pink. 15:00 Reassessment: Patient appears in no apparent distress at this time. Patient and/or ph family updated on plan of care and expected duration. Pain level reassessed. Patient is alert, oriented x 3, equal unlabored respirations, skin warm/dry/pink. Vital Signs: 11:48 BP 108 / 82; Pulse 120; Resp 16; Temp 97.1; Pulse Ox 100% on R/A; la1 13:00 BP 117 / 78; Pulse 98; Resp 18; Pulse Ox 99% on R/A; ph 14:30 BP 107 / 85; Pulse 87; Resp 18; Temp 98.0; Pulse Ox 99% on R/A; ph ED Course: 11:40 Patient arrived in ED. mr 11:47 Arm band placed on right wrist. la1 11:48 Triage completed. la1 12:01 Mone Sawyer, ADALBERTO is Primary Nurse. ph 12:20 Bryna Connolly NP is PHCP. pm1 12:20 Gerry Ye MD is Attending Physician. pm1 13:28 CT Stone Protocol In Process Unspecified. EDMS 14:26 Patient has correct armband on for positive identification. Bed in low position. Call ph light in reach. Side rails up X 1. Pulse ox on. NIBP on. 15:50 No provider procedures requiring assistance completed. Patient did not have IV access ph during this emergency room visit. Administered Medications: 15:15 Drug: Rocephin (cefTRIAXone) 1 grams Route: IM; Site: right ventrogluteal; ph 15:46 Drug: Tylenol #3 (300 mg-30 mg) 1 tablet Route: PO; ph 15:47 Drug: Zofran 4 mg Route: PO; ph Outcome: 14:51 Discharge ordered by . pm1 15:50 Patient left the ED. ph 15:50 Discharged to home ambulatory, with significant other. 15:50 Condition: good 15:50 Discharge instructions given to patient, Instructed on discharge instructions, follow up and referral plans. medication usage, Demonstrated understanding of instructions, follow-up care, medications, Prescriptions given X 3. Signatures: Dispatcher [employer] Pamela MarshallGeovanni RN RN la1 Mone Sawyer RN RN Bryan Connolly, QUALITY IMPROVEMENT CONSULTANT QUALITY IMPROVEMENT CONSULTANT pm1 Corrections: (The following items were deleted from the chart) 11:49 11:47 Acuity: YANNI 4 la1 la1
[2019-04-11] MEDS ORDERED: LIDOCAINE 1% MPF 2 ML AMPULE ONE (15:02)
[2019-04-11] MEDS ORDERED: CEFTRIAXONE 1000 MG/VIAL ONE (15:02)
[2019-04-11] MEDS ORDERED: ONDANSETRON 4 MG (ODT) TAB ONE (15:41)
[2019-04-11] MEDS ORDERED: CODEINE 30MG/APAP 300MG TAB ONE (15:41)
[2019-04-11 16:13] VITALS: BP 108/82; TEMP 97.1; O2SAT 100
== END 2019-04-11 15:50 | disposition home or self-care (01) ==
LOC: ER 11:36
DX: N39.0 Urinary tract infection, site not specified (principal)
CPT/HCPCS: 76377; 74176; 96372; 99284; J2001; 81003; 81015

== ENCOUNTER 2020-02-09 12:22 | Emergency (ER) | payer OTHER ==
[2020-02-09 13:40] LABS: Urine Blood NEGATIVE (NEG); Urine Glucose NEGATIVE (NEG); Urine Protein NEGATIVE (NEG); Urine Specific Gravity <1.005 (1.005-1.030)
[2020-02-09] MEDS ORDERED: NA CHLORIDE 0.9% 1,000 ML ONE (13:56)
[2020-02-09] MEDS ORDERED: ONDANSETRON 4 MG/2 ML VIAL ONE (13:56)
[2020-02-09] MEDS ORDERED: MORPHINE 2 MG/ML SYR ONE (13:56)
[2020-02-09] MEDS ORDERED: CEFTRIAXONE/SWI 1gm 1 GM/10 ML SYR ONE (13:56)
[2020-02-09 13:58] LABS: Absolute Lymphocytes (CBC) 0.6 K/uL (0.7-4.9); Basophils % 0.2 % (0-1.3); Hematocrit 41.3 % (36.0-45.0); Lymphocytes % 6.7 % (15.3-44.8); MPV 7.7 fL (7.6-11.3); RBC Red Blood Cell Count 4.66 M/uL (3.86-4.86)
[2020-02-09 14:09] LABS: Albumin 4.2 g/dL (3.4-5.0); Bilirubin Direct 0.2 mg/dL (0-0.2); Bilirubin Total 0.5 mg/dL (0.2-1.0); Potassium 3.5 mmol/L (3.5-5.1); Protein, Total 8.5 g/dL (6.4-8.2)
[2020-02-09 14:19] LABS: Platelet Estimate ADEQ; Urine White Blood Cell Casts OK
[2020-02-09 14:20] LABS: Blood Morphology Comment NOT SEEN (NOT SEEN)
--- NOTE | 2020-02-09 15:08 | RAD REPORT ---
EXAM DESCRIPTION: CT - Abdomen Pelvis W Contrast - 02/09/2020 2:50 pm CLINICAL HISTORY: Abdominal pain COMPARISON: 2019 TECHNIQUE: Computed axial tomography of the abdomen pelvis was obtained. 100 cc Isovue-300 was admin istered intravenously. Oral contrast was not requested which limits evaluation of appendix and bowel. All CT scans are performed using dose optimization technique as appropriate and may include automated exposure control or mA/KV adjustment according to patient size. FINDINGS: The liver, spleen, pancreas, and adrenals appear unremarkable. Mild fullness of renal pelvis and calices bilaterally without change. There is no evidence of diverticulitis. Appendix is not clearly seen. No stranding within the right l ower quadrant. 2 centimeter calcified uterine fibroid. Prominent periuterine veins Cholecystectomy IMPRESSION: Mild fullness of renal pelvis and calices bilaterally without change Prominent periuterine veins are a nonspecific finding but can be associated with pelvic venous conges tion syndrome
--- NOTE | 2020-02-09 15:18 | EDPHYS ---
Physician Documentation [facility] Name: Farrah Menard Age: 54 yrs Sex: Female : 1965 Arrival Date: 02/09/2020 Time: 12:24 Bed 24 Private MD: LYNDON Physician Blair Canales HPI: 02/08 13:42 This 54 yrs old Female presents to ER via Ambulatory with complaints of Low irma Back Pain, Abdominal Problem. 13:42 The patient presents with pain that is acute. The symptoms are located in the low back. irma The pain radiates to the lumbar area. The problem was sustained from unknown cause. Onset: The symptoms/episode began/occurred 1 day(s) ago. Modifying factors: The patient symptoms are alleviated by nothing, the patient symptoms are aggravated by movement, walking. Associated signs and symptoms: Pertinent positives: abdominal pain, weakness. Severity of symptoms: At their worst the symptoms were mild, moderate, in the emergency department the symptoms are unchanged. The patient has experienced similar episodes in the past, a few times. 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 - Social history:: Smoking status: Patient denies any tobacco usage or history of. Patient/guardian denies using alcohol, street drugs. - Family history:: not pertinent. ROS: 13:42 Constitutional: Negative for fever, chills, and weight loss, Eyes: Negative for injury, irma pain, redness, and discharge, ENT: Negative for injury, pain, and discharge, Neck: Negative for injury, pain, and swelling, Cardiovascular: Negative for chest pain, palpitations, and edema, Respiratory: Negative for shortness of breath, cough, wheezing, and pleuritic chest pain, Back: Negative for injury and pain, MS/Extremity: Negative for injury and deformity, Skin: Negative for injury, rash, and discoloration, Neuro: Negative for headache, weakness, numbness, tingling, and seizure, Psych: Negative for depression, anxiety, suicide ideation, homicidal ideation, and hallucinations, Allergy/Immunology: Negative for hives, rash, and allergies, Endocrine: Negative for neck swelling, polydipsia, polyuria, polyphagia, and marked weight changes, Hematologic/Lymphatic: Negative for swollen nodes, abnormal bleeding, and unusual bruising. 13:42 Abdomen/GI: Positive for abdominal pain, of the suprapubic area, posterior aspect of right lateral abdomen and posterior aspect of left lateral abdomen. Exam: 13:42 Constitutional: This is a well developed, well nourished patient who is awake, alert, irma and in no acute distress. Head/Face: Normocephalic, atraumatic. Eyes: Pupils equal round and reactive to light, extra-ocular motions intact. Lids and lashes normal. Conjunctiva and sclera are non-icteric and not injected. Cornea within normal limits. Periorbital areas with no swelling, redness, or edema. ENT: Nares patent. No nasal discharge, no septal abnormalities noted. Tympanic membranes are normal and external auditory canals are clear. Oropharynx with no redness, swelling, or masses, exudates, or evidence of obstruction, uvula midline. Mucous membranes moist. Neck: Trachea midline, no thyromegaly or masses palpated, and no cervical lymphadenopathy. Supple, full range of motion without nuchal rigidity, or vertebral point tenderness. No Meningismus. Chest/axilla: Normal chest wall appearance and motion. Nontender with no deformity. No lesions are appreciated. Cardiovascular: Regular rate and rhythm with a normal S1 and S2. No gallops, murmurs, or rubs. Normal PMI, no JVD. No pulse deficits. Respiratory: Lungs have equal breath sounds bilaterally, clear to auscultation and percussion. No rales, rhonchi or wheezes noted. No increased work of breathing, no retractions or nasal flaring. Female : Normal external genitalia. Skin: Warm, dry with normal turgor. Normal color with no rashes, no lesions, and no evidence of cellulitis. MS/ Extremity: Pulses equal, no cyanosis. Neurovascular intact. Full, normal range of motion. Neuro: Awake and alert, GCS 15, oriented to person, place, time, and situation. Cranial nerves II-XII grossly intact. Motor strength 5/5 in all extremities. Sensory grossly intact. Cerebellar exam normal. Normal gait. Psych: Awake, alert, with orientation to person, place and time. Behavior, mood, and affect are within normal limits. 13:42 Abdomen/GI: Inspection: abdomen appears normal, Bowel sounds: normal, Palpation: mild abdominal tenderness, in the suprapubic area, Liver: no appreciated palpable abnormalities, Hernia: not appreciated. 13:59 Back: pain, is absent, ROM is normal, normal spinal alignment noted, CVA tenderness, is irma absent, vertebral tenderness, is not appreciated, muscle spasm, is not present. Vital Signs: 12:36 BP 127 / 82; Pulse 95; Resp 16; Temp 98.5; Pulse Ox 99% ; Weight 56.7 kg; Height 5 ft. ll1 3 in. (160.02 cm); Pain 8/10; 14:13 BP 124 / 82; Pulse 96; Resp 16 S; Pulse Ox 100% on R/A; jd3 15:16 BP 116 / 69; Pulse 92; Resp 16 S; Pulse Ox 100% on R/A; jd3 12:36 Body Mass Index 22.14 (56.70 kg, 160.02 cm) ll1 MDM: 12:41 Patient medically screened. [facility] 13:46 Differential diagnosis: strain, contusion, UTI. Data reviewed: vital signs, nurses irma notes, lab test result(s), radiologic studies, CT scan. Data interpreted: classroom monitor: rate is 95 beats/min, rhythm is regular, Pulse oximetry: on room air is 99 %. Counseling: I had a detailed discussion with the patient and/or guardian regarding: the historical points, exam findings, and any diagnostic results supporting the discharge/admit diagnosis, lab results, radiology results, the need for outpatient follow up, for definitive care, a family practitioner. Medication response: 02/08 12:54 Order name: Urine Dipstick--Ancillary (enter results); Complete Time: 14:17 bd 02/08 13:30 Order name: Basic Metabolic Panel; Complete Time: 14:17 [facility] 02/08 13:30 Order name: CBC with Diff; Complete Time: 15:05 [facility] 02/08 13:30 Order name: Hepatic Function; Complete Time: 14:17 [facility] 02/08 13:30 Order name: Lipase; Complete Time: 14:17 [facility] 02/08 13:42 Order name: Urine Culture irma 02/08 13:30 Order name: IV Saline Lock; Complete Time: 13:44 [facility] 02/08 13:42 Order name: CT Abd/Pelvis - IV Contrast Only irma 02/08 14:19 Order name: CBC Smear Scan; Complete Time: 15:05 EDMS 02/08 13:30 Order name: Labs collected and sent; Complete Time: 13:44 jd3 Administered Medications: 13:54 Drug: NS 0.9% 1000 ml Route: IV; Rate: 1 bolus; Site: left antecubital; jd3 15:41 Follow up: Response: No adverse reaction; IV Status: Completed infusion; IV Intake: jd3 1000ml 13:54 Drug: Rocephin 1 grams Route: IV; Rate: per protocol; Site: left antecubital; jd3 14:30 Follow up: Response: No adverse reaction; IV Status: Completed infusion; IV Intake: [id number] 13:54 Drug: morphine 2 mg Route: IVP; Site: left antecubital; jd3 14:50 Follow up: Response: No adverse reaction; Pain is decreased; RASS: Alert and Calm (0) jd3 13:54 Drug: Zofran (Ondansetron) 4 mg Route: IVP; Site: left antecubital; jd3 14:50 Follow up: Response: No adverse reaction jd3 15:15 Drug: Cipro 500 mg Route: PO; jd3 15:41 Follow up: Response: No adverse reaction jd3 Disposition: 02/09/20 15:17 Discharged to Home. Impression: Urinary tract infection, site not specified, Abdominal tenderness - pelvic venous congestion syndrome. - Condition is Stable. - Discharge Instructions: Abdominal Pain, Adult, Dysuria, Urinary Tract Infection, Adult, Urinary Tract Infection, Adult, Vyrq-[id number], Abdominal Pain, Adult, Wqan-bx-[id number]. - Prescriptions for Bentyl 20 mg Oral Tablet - take 1 tablet by ORAL route every 6 hours As needed; 20 tablet. Zofran 4 mg Oral Tablet - take 1 tablet by ORAL route every 12 hours As needed; 20 tablet. Cipro 500 mg Oral Tablet - take 1 tablet by ORAL route every 12 hours for 7 days; 14 tablet. - Medication Reconciliation Form, Thank You Letter, Antibiotic Education, Prescription Opioid Use form. - Follow up: Private Physician; When: 2 - 3 days; Reason: Recheck today's complaints, Continuance of care, Re-evaluation by your physician. Follow up: Denice Marmolejo MD; When: 2 - 3 days; Reason: Recheck today's complaints, Re-evaluation by your physician. - Problem is new. - Symptoms have improved. Signatures: Dispatcher [employer] EDBlair Rivas MD MD cha Davies, Jonathon RN RN jd3 Cyrus Perez RN RN ll1 Corrections: (The following items were deleted from the chart) 15:18 15:17 02/09/2020 15:17 Discharged to Home. Impression: Urinary tract infection, site irma not specified; Abdominal tenderness - pelvic venous congestion syndrome. Condition is Stable. Discharge Instructions: Abdominal Pain, Adult, Dysuria, Urinary Tract Infection, Adult, Urinary Tract Infection, Adult, Jxay-[id number], Abdominal Pain, Adult, Rwvb-dw-[id number]. Prescriptions for Bentyl 20 mg Oral Tablet - take 1 tablet by ORAL route every 6 hours As needed; 20 tablet, Zofran 4 mg Oral Tablet - take 1 tablet by ORAL route every 12 hours As needed; 20 tablet, Cipro 500 mg Oral Tablet - take 1 tablet by ORAL route every 12 hours for 7 days; 14 tablet. and Forms are Medication Reconciliation Form, Thank You Letter, Antibiotic Education, Prescription Opioid Use. Follow up: Private Physician; When: 2 - 3 days; Reason: Recheck today's complaints, Continuance of care, Re-evaluation by your physician. Problem is new. Symptoms have improved. irma 15:41 15:18 02/09/2020 15:17 Discharged to Home. Impression: Urinary tract infection, site jd3 not specified; Abdominal tenderness - pelvic venous congestion syndrome. Condition is Stable. Discharge Instructions: Abdominal Pain, Adult, Dysuria, Urinary Tract Infection, Adult, Urinary Tract Infection, Adult, Medq-dx-Tyab, Abdominal Pain, Adult, [id number]-cz-Jbav. Prescriptions for Bentyl 20 mg Oral Tablet - take 1 tablet by ORAL route every 6 hours As needed; 20 tablet, Zofran 4 mg Oral Tablet - take 1 tablet by ORAL route every 12 hours As needed; 20 tablet, Cipro 500 mg Oral Tablet - take 1 tablet by ORAL route every 12 hours for 7 days; 14 tablet. and Forms are Medication Reconciliation Form, Thank You Letter, Antibiotic Education, Prescription Opioid Use. Follow up: Private Physician; When: 2 - 3 days; Reason: Recheck today's complaints, Continuance of care, Re-evaluation by your physician. Follow up: Denice Marmolejo; When: 2 - 3 days; Reason: Recheck today's complaints, Re-evaluation by your physician. Problem is new. Symptoms have improved. irma
--- NOTE | 2020-02-09 15:18 | ER ---
Nurse's Notes [facility] Name: Farrah Menard Age: 54 yrs Sex: Female : 1965 Arrival Date: 02/09/2020 Time: 12:24 Bed 24 Private MD: Diagnosis: Urinary tract infection, site not specified;Abdominal tenderness-pelvic venous congestion syndrome Presentation: 02/08 12:36 Chief complaint: Patient states: Lower abdominal pain and vaginal pressure for 3 days. ll1 Pain radiates into low back now. No dysuria. No blood in urine. Slight nausea. No vaginal discharge or bleeding. Coronavirus screen: Client denies travel out of the [place] in the last 14 days. At this time, the client does not indicate any symptoms associated with coronavirus-19. Ebola Screen: Patient denies travel to an Ebola-affected area in the 21 days before illness onset. Initial Sepsis Screen: Does the patient meet any 2 criteria? HR > 90 bpm. No. Patient's initial sepsis screen is negative. Risk Assessment: Do you want to hurt yourself or someone else? Patient reports no desire to harm self or others. Onset of symptoms was February 07, 2020. 12:36 Method Of Arrival: Ambulatory ll1 12:36 Acuity: YANNI 3 ll1 12:51 Initial Sepsis Screen: Does the patient have a suspected source of infection? No. jd3 Patient's initial sepsis screen is negative. 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 - Social history:: Smoking status: Patient denies any tobacco usage or history of. Patient/guardian denies using alcohol, street drugs. - Family history:: not pertinent. Screenin:51 Abuse screen: Denies threats or abuse. Nutritional screening: No deficits noted. jd3 Tuberculosis screening: No symptoms or risk factors identified. Fall Risk Ambulatory Aid- None/Bed Rest/Nurse Assist (0 pts). Gait- Normal/Bed Rest/Wheelchair (0 pts) Mental Status- Oriented to own ability (0 pts). Total Hernandez Fall Scale indicates No Risk (0-24 pts). Assessment: 12:50 General: Appears in no apparent distress. uncomfortable, Behavior is calm, cooperative, jd3 appropriate for age. Pain: Complains of pain in suprapubic area Pain radiates to back Quality of pain is described as crampy, radiating. Neuro: Level of Consciousness is awake, alert, obeys commands, Oriented to person, place, time, situation. Cardiovascular: Denies chest pain, Capillary refill < 3 seconds Patient's skin is warm and dry. Respiratory: Airway is patent Respiratory effort is even, unlabored, Respiratory pattern is regular, symmetrical, Denies cough, shortness of breath. GI: Abdomen is flat, non-distended, Bowel sounds present X 4 quads. Abd is soft and non tender X 4 quads. Reports lower abdominal pain, nausea, Patient currently denies constipation, diarrhea, vomiting. : No signs and/or symptoms were reported regarding the genitourinary system. EENT: No signs and/or symptoms were reported regarding the EENT system. Derm: Skin is intact, Skin is dry, Skin is normal, Skin temperature is warm. Musculoskeletal: Circulation, motion, and sensation intact. Range of motion: intact in all extremities. 13:55 Reassessment: Patient appears in no apparent distress at this time. No changes from jd3 previously documented assessment. Patient and/or family updated on plan of care and expected duration. Pain level reassessed. Patient is alert, oriented x 3, equal unlabored respirations, skin warm/dry/pink. 14:13 Reassessment: Patient appears in no apparent distress at this time. Patient and/or jd3 family updated on plan of care and expected duration. Pain level reassessed. Patient is alert, oriented x 3, equal unlabored respirations, skin warm/dry/pink. awaiting CT scan. 15:16 Reassessment: Patient appears in no apparent distress at this time. Patient and/or jd3 family updated on plan of care and expected duration. Pain level reassessed. Patient is alert, oriented x 3, equal unlabored respirations, skin warm/dry/pink. Patient states feeling better. 15:40 Reassessment: Patient appears in no apparent distress at this time. Patient and/or jd3 family updated on plan of care and expected duration. Pain level reassessed. Patient is alert, oriented x 3, equal unlabored respirations, skin warm/dry/pink. Patient states feeling better. Vital Signs: 12:36 BP 127 / 82; Pulse 95; Resp 16; Temp 98.5; Pulse Ox 99% ; Weight 56.7 kg; Height 5 ft. ll1 3 in. (160.02 cm); Pain 8/10; 14:13 BP 124 / 82; Pulse 96; Resp 16 S; Pulse Ox 100% on R/A; jd3 15:16 BP 116 / 69; Pulse 92; Resp 16 S; Pulse Ox 100% on R/A; jd3 12:36 Body Mass Index 22.14 (56.70 kg, 160.02 cm) ll1 ED Course: 12:24 Patient arrived in ED. ag5 12:39 Triage completed. ll1 12:39 Arm band placed on. ll1 12:41 Blair Canales MD is Attending Physician. irma 12:47 Gurmeet Keita RN is Primary Nurse. jd3 12:51 Patient has correct armband on for positive identification. Placed in gown. Bed in low jd3 position. Call light in reach. Side rails up X 1. Pulse ox on. NIBP on. 13:43 Inserted saline lock: 20 gauge in left antecubital area, using aseptic technique. Blood jd3 collected. 14:50 CT Abd/Pelvis - IV Contrast Only In Process Unspecified. EDMS 15:18 Denice Marmolejo MD is Referral Physician. irma 15:40 No provider procedures requiring assistance completed. IV discontinued, intact, jd3 bleeding controlled, No redness/swelling at site. Pressure dressing applied. Administered Medications: 13:54 Drug: NS 0.9% 1000 ml Route: IV; Rate: 1 bolus; Site: left antecubital; jd3 15:41 Follow up: Response: No adverse reaction; IV Status: Completed infusion; IV Intake: jd3 1000ml 13:54 Drug: Rocephin 1 grams Route: IV; Rate: per protocol; Site: left antecubital; jd3 14:30 Follow up: Response: No adverse reaction; IV Status: Completed infusion; IV Intake: [id number] 13:54 Drug: morphine 2 mg Route: IVP; Site: left antecubital; jd3 14:50 Follow up: Response: No adverse reaction; Pain is decreased; RASS: Alert and Calm (0) jd3 13:54 Drug: Zofran (Ondansetron) 4 mg Route: IVP; Site: left antecubital; jd3 14:50 Follow up: Response: No adverse reaction jd3 15:15 Drug: Cipro 500 mg Route: PO; jd3 15:41 Follow up: Response: No adverse reaction jd3 Intake: 14:30 IV: 10ml; Total: 10ml. jd3 15:41 IV: 1000ml; Total: 1010ml. jd3 Outcome: 15:17 Discharge ordered by . irma 15:40 Discharged to home ambulatory, with family. jd3 15:40 Condition: stable 15:40 Discharge instructions given to patient, Instructed on discharge instructions, follow up and referral plans. medication usage, Demonstrated understanding of instructions, follow-up care, medications, Prescriptions given X 3. 15:41 Patient left the ED. jd3 Signatures: Dispatcher [employer] EDMS Blair Canales MD MD cha Davies, Jonathon, RN RN jEverardo Hernandez 5 Cyrus Perez RN RN ll1 Corrections: (The following items were deleted from the chart) 14:14 14:13 Pulse 96bpm; Resp 16bpm; Spontaneous; Pulse Ox 100% RA; jd3 jd3
[2020-02-09] MEDS ORDERED: CIPROFLOXACIN HCL 500 MG TAB ONE (15:23)
[2020-02-09 16:27] VITALS: TEMP 98.5
[2020-02-09 16:28] VITALS: O2SAT 100
[2020-02-09 16:29] VITALS: BP 116/69
== END 2020-02-09 15:41 | disposition home or self-care (01) ==
LOC: ER 12:22
DX: N39.0 Urinary tract infection, site not specified (principal); R10.819 Abdominal tenderness, unspecified site; N94.89 Other specified conditions associated with female genital organs and menstrual cycle; Z88.2 Allergy status to sulfonamides
CPT/HCPCS: 96365; 96361; 87088; 85025; 87086; 80048; 36415; 80076; 81003; 83690; 74177; 96375; 99284; Q9967; J2270; J0696; J7030; J2405